=== PATIENT | male | born 1960 | race Caucasian/White ===

== ENCOUNTER → 2025-04-16 08:25 | Outpatient (BNVA) | payer MEDICARE, SELFPAY | PROVIDERS: Visit Provider Nurse Practitioner Family | DX: L82.1 Other seborrheic keratosis (principal); D22.5 Melanocytic nevi of trunk; L57.8 Other skin changes due to chronic exposure to nonionizing radiation; L81.4 Other melanin hyperpigmentation; L57.0 Actinic keratosis | CPT/HCPCS: 17000; 99213 ==